=== PATIENT | female | born 1940 | race Caucasian/White ===

== ENCOUNTER → 2023-09-28 | Outpatient (CLI) | payer MEDICARE ==
--- NOTE | 2023-09-28 15:15 | MR ---
EXAMINATION TYPE: MR lumbar spine wo con DATE OF EXAM: 09/28/2023 COMPARISON: Radiograph 09/12/2023 HISTORY: 83-year-old female M54.50, Low back pain into ambreen lower extremities TECHNIQUE: Multiplanar, multisequence images of the lumbar spine were acquired without IV contrast. FINDINGS: There is a degenerated dextroconvex scoliosis along the upper lumbar spine. Heterogeneous marrow signal in part related to red marrow hyperplasia and in part edematous Modic typ e I endplate change towards the left at L2-L3 and towards the right at L4-L5 due to the patient's sco liotic curvature. There is moderate multilevel degenerative disc disease with degenerated, desiccated, narrowed, diffus fadia bulging discs. Vertebral heights are preserved. Overall alignment is maintained. Conus medullaris is normal. Large bulging discs are present at multiple levels. There is also advanced hypertrophic facet arthrop athy and prominent ligamentum flavum thickening throughout the lumbar spine. At T10-T11, central, right paracentral disc protrusion impressing on the ventral thecal sac but not c ausing any significant spinal canal stenosis. There is moderate bilateral neuroforaminal stenosis. Additional moderate bilateral foraminal stenosis at T11-T12. At T12-L1, there is mild disc bulge without significant spinal canal stenosis. Mild bilateral neural foraminal narrowing. At L1-L2, diffuse disc bulge with ligamentum flavum thickening and hypertrophic facet arthropathy. Ov erall mild spinal canal stenosis along with moderate to severe left and mild right neuroforaminal mag nosis. At L2-L3, there is diffuse disc bulge with ligamentum flavum thickening and hypertrophic facet arthro carlos. Changes result in moderate spinal canal stenosis with moderate to severe left neural foraminal stenosis. At L3-L4, there is diffuse disc bulge with ligamentum flavum thickening and advanced hypertrophic fac et arthropathy. Changes result in moderate to severe focal spinal canal stenosis along with moderate left neuroforaminal stenosis. At L4-L5, there is diffuse disc bulge with ligamentum flavum thickening and hypertrophic facet arthro carlos. Changes result in moderate to severe focal spinal canal stenosis with moderate to severe right neuroforaminal stenosis. At L5-S1, there is facet arthropathy without significant canal or foraminal stenosis. IMPRESSION: 1. Degenerated dextroconvex scoliosis centered along the upper lumbar spine. There is moderate multil evel degenerative disc disease. At the sides of concavity, left L2-L3 and right L4-L5, there is assoc iated edematous Modic type I endplate change. 2. No vertebral compression collapse or malalignment. 3. Additional prominent ligamentum flavum thickening and hypertrophic facet arthropathy throughout. 4. Changes result in overall moderate to severe spinal canal stenosis at L3-L4 and L4-L5. Moderate at L2-L3 and mild at L1-L2. 5. Variable neuroforaminal stenoses as outlined above.
== END | disposition home or self-care (01) ==
LOC: RADMRIMAIN 12:54
PROVIDERS: ATTEND Orthopaedic Surgery
DX: M48.061 Spinal stenosis, lumbar region without neurogenic claudication (principal); M47.816 Spondylosis without myelopathy or radiculopathy, lumbar region; M51.36 Other intervertebral disc degeneration, lumbar region; M41.86 Other forms of scoliosis, lumbar region; M99.73 Connective tissue and disc stenosis of intervertebral foramina of lumbar region
CPT/HCPCS: 72148

== ENCOUNTER → 2024-07-01 | Outpatient (CLI) | payer MEDICARE ==
--- NOTE | 2024-07-23 13:40 | MR ---
Patient: Peri Lockhart L Ordering Physician: Unknown, Unknown ID: [id number] Phone, Pager: Phone: N/A Pager: N/A : [phone] Age/Gender: 84Y, F Primary Location: N/A Procedure: MR lumbar w/o con EXAMINATION TYPE: MR lumbar spine wo con DATE OF EXAM: 07/15/2024 6:45 AM CLINICAL INDICATION: Pain COMPARISON: 09/28/2023 TECHNIQUE: Multi planar, multi sequence imaging was performed utilizing: T1-weighted, T2-weighted, a nd turbo inversion recovery imaging of the lumbar spine. IV Contrast: cc . (None if empty) FINDINGS: Alignment: The lumbar vertebral bodies have preserved heights with scoliosis alignment dextroscoliosi s apex L2. Cord: The conus medullaris and the distal spinal cord appear unremarkable with regards to their signa l intensity and morphology. Bones/Discs: Multilevel disc degeneration changes with osteophyte formation, disc space narrowing, an d facet joint arthropathy. Multilevel disc desiccation is present. Reactive adjoining endplate edema at L4-L5 and L2-L3 and L1-L2 adjoining endplates T12-L1: No evidence of significant spinal canal stenosis or neural foraminal stenosis. L1-L2: Disc bulge and facet joint arthropathy result in mild spinal canal and severe left and moderat e right neural foraminal stenosis. L2-L3: Disc bulge and facet joint arthropathy result in moderate spinal canal and severe left and mod erate right neural foraminal stenosis. L3-L4: Disc bulge and facet joint arthropathy result in severe spinal canal and moderate to severe bi lateral neural foraminal stenosis. L4-L5: Disc bulge and facet joint arthropathy result in moderate to severe spinal canal and severe ri ght and moderate left neural foraminal stenosis. L5-S1: The disc has a rounded posterior morphology without significant spinal canal stenosis. Facet j oint arthropathy with moderate bilateral neural foraminal stenosis. No significant spinal canal or neural foraminal stenosis in the remainder of the visualized levels. Other findings: None. IMPRESSION: Overall findings are not significantly changed from prior. 1. Scoliosis changes with multilevel disc degeneration. Neural foraminal stenosis worse at L4-L5 wit h severe right, L3-L4 with moderate to severe bilateral, L2-L3 with severe left, L1 and L2 with sever e left neural foraminal stenosis. 2. Spinal canal stenosis worse at L3-L4 with severe, L4-5 with moderate to severe and L2-L3 with mod erate spinal canal stenosis.
== END | disposition home or self-care (01) ==
LOC: RADMRIMAIN 09:57
PROVIDERS: ATTEND Orthopaedic Surgery
DX: M48.061 Spinal stenosis, lumbar region without neurogenic claudication (principal); M51.36 Other intervertebral disc degeneration, lumbar region; M41.9 Scoliosis, unspecified
CPT/HCPCS: 72148

== ENCOUNTER → 2024-12-05 | Outpatient (CLI) | payer MEDICARE | END | disposition home or self-care (01) | LOC: LABPAT 10:50 | PROVIDERS: ATTEND Orthopaedic Surgery | DX: Z01.812 Encounter for preprocedural laboratory examination (principal); M54.17 Radiculopathy, lumbosacral region; M48.061 Spinal stenosis, lumbar region without neurogenic claudication; Z22.322 Carrier or suspected carrier of Methicillin resistant Staphylococcus aureus | CPT/HCPCS: 86850; 86900; 86901; 87070 ==

== ENCOUNTER 2024-12-09 05:40 | Observation (INO) | payer MEDICARE ==
[2024-12-05 14:52] VITALS: BMI 21.7
--- NOTE | 2024-12-08 21:49 | P.HPOR ---
History of Present Illness H&P Date: 12/05/24 .D:Date: 12/05/24 : 10:41am .T:Title: Sascha Cook [facility] H&P Age: 84 year Height: 5'3" Weight: 127 lbs BP:/ BMI: 22.50 kg/m2 Occupation: Retired VAS: 5 CC: Lumbar pain DOI: Chronic Ms. Lockhart presents to the office today, 12/05/24, for a Pre-Op appt to discuss her surgery and answer any questions or concerns. Patient reports that she was diagnosed with Covid on 11/28/24. She does report that she feels she has been improving, although she feels weak. Encouraged patient to increase her protein intake, possible drink Ensure protein shakes. Regarding her lumbar pain, she is reporting a pain across her lumbar region that radiates down the bilateral lower extremities. She describes her leg symptoms as a constant aching associated with weakness. She states her pain overall is increased with walking, standing, twisting, and stairs. Patient also states she has been having bladder incontinence. She is currently taking aspirin for her symptoms. Patient ambulates independently. * Patient denies any f/c/sob/cp, perineal numbness or tingling, or bowel incontinence/retention. * The patients past social, medical, family, surgical history, as well as review of systems, have been reviewed. Please refer to the History and Physical form that has been scanned into our electronic medical record system. * 16 points review of systems completed and as stated in HPI, all other systems reviewed are negative. PAST TREATMENTS: PAST IMAGING: -YES, MRI and xray - TRAUMA RELATED: -NO - WORK RELATED: -NO - PT IN LAST 6 MONTHS: -YES, no relief - PHYSICIAN DIRECTED HOME EXERCISE PROGRAM: -YES - ACTIVITY MODIFICATION: -YES - MEDICATIONS: -YES, Aspirin - ALTERNATIVE INTERVENTIONS (CHIROPRACTIC, ACUPUNCTURE, MASSAGE, RICE): -YES - BRACING: -NO - INJECTIONS (KEVIN, TF, RFA): -YES, L5-S1 KEVIN - MEDICAL HISTORY: Past Medical History: REVIEWED STATED IN CHART Past Surgical History: REVIEWED STATED IN CHART Social History: REVIEWED STATED IN CHART SMOKING: Never smoker ETOH: None SUBSTANCES: None Family History: REVIEWED STATED IN CHART P1 Current Medications: Rx: Sayra Back and Body 500 mg-32.5 mg tablet Ref: 0 Instructions: Q12 hours Rx: levothyroxine 50 mcg capsule Ref: 0 Instructions: take 1 capsule (50 mcg) by oral route once daily Rx: verapamiL ER (SR) 180 mg tablet,extended release Ref: 0 Instructions: take 1 tablet (180 mg) by oral route once daily with food P1 PHYSICAL EXAM: General: AOX3, NAD, Well hydrate, well nourished HEENT: No lumps or masses Extremities: No color changes, no pooling INTEGUMENT: Appearance: Normal color and turgor Surgical Incisions: none Hairy Patches: ABSENT Dorsal Skin Dimples: Normal [employer] spots: ABSENT PALPATION: TTP Midline: YES Paracervical: NO Parathoracic: NO Paralumbar: YES SIJ TESTING (Jannie's, FABER4, Compression, Distraction, Thigh Thrust, Hip Thrust): TESTED * POSITIVE FINDINGS: NA at this time NEGATIVE FINDINGS: Jannie's, FABER4, Compression, Distraction, Thigh Thrust, Hip Thrust POSTURAL BALANCE: Coronal: BALANCED Sagittal: BALANCED Shoulder height: LEVEL Pelvic Girdle: LEVEL ROM AND APPEARANCE: Neck: UNRESTRICTED Lumbar: RESTRICTED Shoulders: Symmetrical Hips: Symmetrical Knees: Symmetrical Hands: Symmetrical Feet: Symmetrical VASCULAR STATUS: PALPABLE PULSES B/L UE AND LE 2/4 RAD/ULNAR/DP/PT Edema: NONE NEUROLOGICAL EXAMINATION: Mental Status: Awake, alert, fully oriented with normal attention, concentration, and memory. Fluent appropriate speech. CRANIAL NERVES: I: Olfactory not assessed. II: Visual acuity normal, no visual field deficit noted with confrontation. III, IV: Normal pupillary reflexes & intact extraocular movements without nystagmus. V, : Intact symmetrical facial sensation. VII: Intact symmetrical facial motor movement: Hearing intact. IX, X: Intact gag, swallow, & normal voice. XI: Sternocleidomastoid, trapezius function intact. XII: Tongue midline with normal movements. TENSIONING: * L'HERMITTE'S SIG:NEG SPURLUNG'S SIGN:NEG UPPER EXTREMITY TENSIONING SIGNS: NEG CUBITAL TUNNEL COMPRESSION:NEG TINELS AT WRIST:NEG STRAIGH LEG RAISE:POS b/l CONTRALATERAL STRAIGHT LEG RAISE: NEG MOTOR EXAM (0-5/5, NT) Muscle appearance: Symmetrical, without signs of atrophy or dystrophy UPPER EXTREMITY RIGHT LEFT Shoulder Abduction 5 5 Biceps 5 5 Triceps 5 5 Wrist Extension 5 5 Hand Intrinsics 5 5 Duplicator Punch Operator 5 5 LOWER EXTREMITY RIGHT LEFT Hip Flexion 4 4 Knee Extension 4 4 Knee Flexion 4 4 Dorsiflexion 4 4 Plantarflexion 4 4 EHL 4 4 FHL 4 4 REFLEXES (0-4/2, NT): RIGHT LEFT Bicep 2 2 Brachioradialis 2 2 Triceps 2 2 Patellar 1 2 Achilles 1 2 PATHOLOGICAL REFLEXES: RIGHT LEFT BAXTER'S ABSENT ABSENT CLONUS ABSENT ABSENT BABINSKI ABSENT ABSENT RECTAL TONE: INTACT/NT SENSATION (0-4, NT): Sensation intact to LT and Pain * C5-T1 distribution BUE * L2-S2 distribution BLE *Exceptions below* DERMATOMAL DEFICIT/RADICULAR PATTERN: global GAIT AND FUNCTIONAL EVALUATION: AMBULATORY AID NONE ROMBERG'S TEST INTACT HAND AND FINGER DEXTERITY INTACT YES DYSDIADOCHOKINESIA EXAM NEG B/L YES TOE/HEEL WALK INTACT WITH GOOD BALANCE YES SQUAT AND RISE W/O ASSISTANCE TO 60 DEG KNEE FLEXION YES SINGLE LEG STANCE INTACT TRENDELENBURG NEG IMAGING: XRAY Date: 09/12/23 Location: [facility] Region: LUMBAR Views: MV IMAGES ARE REVIEWED WITH THE PATIENT IN OFFICE AND DEMONSTRATE THE FOLLOWING: FINDINGS: Image demonstrate degenerative lumbar scoliosis from L1-L5 for with grade 1 spondylolisthesis L4-L5 which is mobile. There is severe spondylotic collapse from L1-L4 with disc height loss facet arthrosis and a levoconvex scoliosis. This is degenerative in nature once again. Segmental collapse at L1-L2 and L2- L3 is the worst. No fractures or other lesions noted. AP pelvis demonstrates congruent level pelvis without fracture MRI Date: 07/01/24 Location: [facility] Region: LUMBAR Contrast: N IMAGES ARE REVIEWED WITH THE PATIENT IN OFFICE AND DEMONSTRATE THE FOLLOWING: FINDINGS: These demonstrate severe spondylotic changes with severe spondylotic collapse from L1-L3 grade 1 spondylolisthesis L4-L5 noted with severe stenosis L1-2 L2-3 L3-4 secondary to these findings with degenerative disc herniations facet arthropathy and hypertrophy ligamental hypertrophy and stenotic features. There is severe stenosis centrally as well as bilateral foraminal he secondary to these findings. No acute fracture dislocation or other lesions noted IMPRESSION: It was my pleasure to have seen and examined Peri. I reviewed the patient's clinical syndrome, physical findings, and imaging studies during the appointment today. It is my impression that the patient has a diagnosis of. 1.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 3.L1-S8gnsswreklnn and stenosis 4. Degenerative lumbar scoliosis 5. BLE weakness L>R 6. Neurogenic claudication PLAN: DISCUSSION: -I have discussed with the patient their clinical signs and symptoms, imaging, and treatment options. We have discussed risks, benefits, potential outcomes and natural course as pertains top their issues. The patient understands and would like to proceed as follows below: SURGICAL RECOMMENDATION -L1-L4 LAMINOFORAMINOTOMY THERAPIES - -Cont. with home exercises and home PT exercises as able -Cont. with Heat/Ice as warranted -Cont. with supplementation Vit D, Vit C, Ca2+, High protein diet -OK for massage or other alternative treatment modalities as able. If it exacerbates your sx do not continue ACTIVITY -Recommend walking up to 30 min 2x daily on a flat easy surface with good support. MEDICATIONS -Take as directed -Cont. home medications as directed by your PCP. Check with your PCP for any medication interactions or issues if needed. IMAGING -N/A INJECTIONS -N/A Spine Surgery Risk Review Ms. Lockhart is presenting for evaluation of lumbar pain. It was my pleasure to have seen and examined Ms. Lockhart. In our visit today we have had a chance to go over subjective complaints, physical examination findings and treatments including the natural course history without intervention and various interventional options. The patients imaging demonstrates: XRAY Date: 09/12/23 Location: [facility] Region: LUMBAR Views: MV IMAGES ARE REVIEWED WITH THE PATIENT IN OFFICE AND DEMONSTRATE THE FOLLOWING: FINDINGS: Image demonstrate degenerative lumbar scoliosis from L1-L5 for with grade 1 spondylolisthesis L4-L5 which is mobile. There is severe spondylotic collapse from L1-L4 with disc height loss facet arthrosis and a levoconvex scoliosis. This is degenerative in nature once again. Segmental collapse at L1-L2 and L2- L3 is the worst. No fractures or other lesions noted. AP pelvis demonstrates congruent level pelvis without fracture MRI Date: 07/01/24 Location: [facility] Region: LUMBAR Contrast: N IMAGES ARE REVIEWED WITH THE PATIENT IN OFFICE AND DEMONSTRATE THE FOLLOWING: FINDINGS: These demonstrate severe spondylotic changes with severe spondylotic collapse from L1-L3 grade 1 spondylolisthesis L4-L5 noted with severe stenosis L1-2 L2-3 L3-4 secondary to these findings with degenerative disc herniations facet arthropathy and hypertrophy ligamental hypertrophy and stenotic features. There is severe stenosis centrally as well as bilateral foraminal he secondary to these findings. No acute fracture dislocation or other lesions noted On physical exam, Ms. Lockhart demonstrates: Patient is reporting a pain across her lumbar region that radiates down te bilateral lower extremities. She describes her leg symptoms as a constant aching associated with weakness. She states her pain overall is increased with walking, standing, twisting, and stairs. Since last office visit se received L5-S1 KEVIN with mild relief. Patient also states she has been having bladder incontinence. I have explained to the patient that as their condition progresses it will cause further neurological deficits and eventual paralysis. Based on the patients imaging, physical exam, and the rapid progression and disabling nature of their symptoms, at this time I recommend surgery in the form of a: L1-L4 M LAMINOFORAMINOTOMY . I discussed the risk and benefits of this procedure at length with Ms. Lockhart. The patient agreed to considered pursuing the procedure abovementioned. Prior to surgery, she should follow up with her PCP (Cardio, ID, IM etc) for clearan ce. Questions were invited and answered, and the patient wishes to proceed as outlined below. Currently, I am recommendin.L1-L4 LAMINOFORAMINOTOMY 2.Follow up with PCP for surgical clearance 3.Review of surgical risks and benefits as well as an educational packet on the proposed surgical procedure. [LEFT] Risks: All surgical procedures come with inherent risks, including those related to positioning, anesthesia, intraoperative findings, and postoperative complications. It is important to understand that surgery does not come with any guarantee of a successful outcome as complications and adverse events are always possible. The patient was given a handout in office today discussing the surgical procedure and risks associated with the intervention, both of which were discussed with the patient. These risks include but are not limited to the following: * Experiencing same, different or even worse symptoms in back, neck, arms, or legs compared to before surgery. Requiring further surgery or other forms of treatment presently or at some time in the future at same or other levels of the intended spine surgery. On an extreme but fortunately relatively rare basis severe complication such as blindness, stroke, heart attack, temporary and/or permanent nerve injury, paralysis, coma, or may occur, sometimes without known explanation. Surgical complications may include but are not limited to risk of infection, fluid accumulation in the surgical dissection site, including a seroma or hematoma, that requires additional surgery, wound drainage, bleeding, new numbness or weakness, vision changes/loss, spinal fluid leakage, non-healing and/or infected incision, headaches, difficulty or inability to swallow, hoarseness, hemopneumothorax, pneumothorax, impotence, retrograde ejaculation, vaginal dryness; injury to nerves, spinal cord, blood vessels, lymphatics or other vital organs (i.e., bowel injury, injury to the great vessels); heterotopic bone formation; complications related to the hardware such as screws, rods, cages including misplaced hardware, device failure, instrumentation at the wrong spine level, hardware fracture/breakage, or hardware loosening; vertebral failure of the spinal column above or below the newly placed hardware; retained surgical instrumentations or devices and the need for further surgery. * Medical risks of the planned spine surgery include but are not limited to generalized Infections to the whole body or local areas outside of the surgical site (sepsis), heart attack, bleeding, anaphylaxis, meningitis, seizure, epilepsy, hearing loss, burn delgado, laceration of the head or other areas of the body, bruising, hypersensitivity of the skin, bladder over distension; allergic reaction; shoulder injury related to positioning; fat, blood and air clots to other areas of the body like heart, lungs, brain; failure of internal organs such as lungs, kidneys, liver and excessive bleeding. If blood transfusions are necessary, note that transfusions may cause intolerance reactions such as anaphylaxis or other complex reactions. Despite best efforts, the results of spine surgery might not heal in terms of bone, soft tissues such as skin, fascia, ligaments, and joints. Additionally, in order to achieve best possible results, spine surgery may be carried out beyond the initially planned levels and involve decompression, fusion including insertion of hardware at levels other than the original intended area of surgical interest change some portions of the procedure in order to ensure the best possible outcomes. With spine surgery and spinal fusion, there are different off label uses of instrumentation (devices, implants and hardware) as well as biological substances (bone morphogenic proteins, demineralized bone matrix) as well as using extra bone from allograft sources (i.e. cadaver bone) or autograft (iliac crest bone, ribs, or the spine itself). The patient has been given information about these practices and their inherent risks and benefits. [facility] is an educational center that serves as a training facility for neurosurgical and orthopedic SENIOR FINANCIAL REPORTING ANALYST and Nursing students. Physician assistants are medically trained surgical providers who function in the outpatient, inpatient, and operating room setting under the direct supervision of the attending surgeon. [facility] has multiple operating rooms with single and overlapping rooms running daily. They currently function under the required guidelines as produced by the [facility] Finance Committee with regards to the overlapping rooms and will continue to comply with changes to this policy as they occur. The requirements include and are complied with as follows: (1) the critical portions of the overlapping rooms will not occur at the same time, (2) the attending physician will be physically present during the critical portions of the procedure and immediately available during the entire case, and (3) a back-up attending is designated should the primary attending not be immediately available. The patient has had a chance to review all the listed information, has been given print outs detailing this information, and has had all his/her questions answered to their satisfaction. It was my pleasure to have seen and examined Ms. Lockhart. In our visit today we have had a chance to go over my understanding of our patient's current condition, the natural course history without intervention and various interventional options. Questions were invited and answered, and the patient wishes to proceed as outlined above. I have seen and examined the patient for 25 minutes and we have spent more than 50% of the time in repeat and detailed counseling about the patient's condition, its natural course history with out and as much as can be predicted with surgery and re-review of various surgical treatment options. In conclusion, Ms. Lockhart requested we proceed with the above suggested surgery and are willing to accept risks and limitations of the suggested surgery as nature of the disease process and our best attempts at treatment for the condition. Medical Necessity: Medical necessity for surgical intervention is established by multiple critical findings. Imaging studies demonstrate severe multilevel pathology including degenerative lumbar scoliosis from L1-L5 with mobile Grade I spondylolisthesis at L4-L5, and severe spondylotic collapse from L1-L4. MRI (07/01/24) confirms severe central and bilateral foraminal stenosis at multiple levels (L1-2, L2-3, L3-4) with disc herniations, facet arthropathy, and ligamental hypertrophy. The patient exhibits progressive neurological deterioration evidenced by bilateral lower extremity weakness, diminished reflexes, and most critically, new onset bladder incontinence indicating possible cauda equina compromise. Failed conservative management including physical therapy, medications, and epidural injections, combined with progressive neurological symptoms, establishes clear necessity for surgical intervention. Authorization Rationale: Authorization for L1-L4 minimally invasive laminoforaminotomy (left) is warranted based on several critical factors. First, the patient demonstrates progressive neurological decline with new onset bladder incontinence, indicating urgent need for decompression to prevent permanent neurological deficit. Second, imaging confirms severe multilevel stenosis with both central and foraminal components, correlating with clinical symptoms and failed conservative management. The minimally invasive approach is particularly appropriate given the patient's advanced age (84) and the need to minimize surgical morbidity while achieving adequate decompression. The surgical plan specifically addresses the most severely affected levels (L1-L4) where imaging demonstrates critical stenosis. Without surgical intervention, the patient faces high risk of permanent neurological deficit, particularly given the presence of bowel/bladder symptoms. The proposed surgical approach represents the least invasive option that can adequately address the neural compression while minimizing the risk of further instability in the setting of degenerative scoliosis. FOLLOW UP: 2 week Post -Op PLAN AT NEXT VISIT: RECHECK PATIENT EDUCATION: Medications Reviewed: YES In our visit today Ms. Lockhart and I have had a chance to go over my understanding of the patient's current condition, the natural course history without intervention and various interventional options. Questions were invited and answered, and the patient wishes to proceed as outlined above. I will be sure to keep you updated after Ms. Lockhart returns here for further follow-up. Thank you again for your referral. Please do not hesitate to contact me if you have any further questions. Signed and authenticated by: Trang Caicedo [facility] [address] [place] [id number] . This message is confidential, intended only for the named recipient(s) and may contain information that is privileged or exempt from disclosure under applicable law. If you are not the intended recipient(s), you are notified that the dissemination, distribution or copying of this information is prohibited. If you received this message in error, please notify the sender then delete this message. # SIGNED BY JANICE Jackson, Nurse Practitioner (STO)12/05/2024 11:00AM Past Medical History Past Medical History: Cancer, Hypertension, Osteoarthritis (OA), Thyroid Disorder Additional Past Medical History / Comment(s): tested positive for Covid 12-19-24-tx w/ paxlovid,chronic back pain, hx fx rt leg just below knee History of Any Multi-Drug Resistant Organisms: None Reported Past Surgical History: Cholecystectomy, Joint Replacement Additional Past Surgical History / Comment(s): Vulva CA-4 surgical procedures,ORIF rt hip, rt hip replacement, rt knee replacement,partial thyroidectomy Past Anesthesia/Blood Transfusion Reactions: No Reported Reaction, Postoperative Nausea & Vomiting (PONV) Additional Past Anesthesia/Blood Transfusion Reaction / Comment(s): no hx blood transfusion. PONV w/ gallbladder surgery Past Psychological History: No Psychological Hx Reported Smoking Status: Never smoker Past Alcohol Use History: None Reported Past Drug Use History: None Reported - Past Family History Mother Family Medical History: Deep Vein Thrombosis (DVT), Pulmonary Embolus Additional Family Medical History / Comment(s): at age 34 from PE after surgery Medications and Allergies Home Medications Medication Instructions Recorded Confirmed Type Acetaminophen [Tylenol Arthritis] 500 - 1,000 mg PO Q6H PRN 12/05/24 12/05/24 History Sayra Back And Body Extra Str 1 dose PO DAILY PRN 12/05/24 12/05/24 History Levothyroxine Sodium [Synthroid] 50 mcg PO QAM 12/05/24 12/05/24 History Verapamil HCl [Verapamil ER] 180 mg PO BID 12/05/24 12/05/24 History Allergies Allergy/AdvReac Type Severity Reaction Status Date / Time levofloxacin [From Levaquin] Allergy Rapid Verified 12/05/24 14:16 Heart Rate olmesartan [From Benicar] Allergy skin Verified 12/05/24 14:16 lesions,wt loss/diarrhea,hair loss Penicillins Allergy Anaphylaxis Verified 12/05/24 14:16 Sulfa (Sulfonamide Allergy Rash/Hives Verified 12/05/24 14:16 Antibiotics) Physical Examination Osteopathic Statement: *. No significant issues noted on an osteopathic st ructural exam other than those noted in the History and Physical/Consult.
[~2024-12-09 05:40] MED LIST: TRANEXAMIC 1,000 MG/100ML-NACL 1,000 MG in SALINE 1 100ML.BAG IVPB PRN
[2024-12-09] MEDS ORDERED: LIDOCAINE 1% (10MG/ML) FOR IV START INTRADERMA PRN (06:13)
[2024-12-09] MEDS: ACETAMINOPHEN TAB 500 MG TAB PO PRN (06:33)
[2024-12-09] MEDS: GABAPENTIN 300 MG CAP PO PRN (06:33)
[2024-12-09] MEDS: ONDANSETRON 4 MG/2 ML VIAL IVP ONE (06:56)
[2024-12-09] MEDS: LACTATED RINGERS 1,000 ML IV SCH (06:56)
[2024-12-09] MEDS: DEXAMETHASONE SOD PHOSPHATE 4 MG/ML 1 ML VIAL IV ONE (06:57)
[2024-12-09] MEDS ORDERED: fentaNYL (PF) 50 MCG/ML 2 ML AMP IVP PRN (07:00)
[2024-12-09] MEDS ORDERED: MIDAZOLAM 2 MG/2 ML VIAL IV PRN (07:00)
[2024-12-09] MEDS: IV FLUID CONTINUATION 1,000 ML IV ONE (07:12)
[2024-12-09] MEDS: IV FLUID CONTINUATION 500 ML IV ONE (07:12)
[2024-12-09] MEDS ORDERED: ALBUMIN HUMAN 5% (25gm) 500 ML VIAL IVPB ONE (07:27)
[2024-12-09] MEDS ORDERED: WATER FOR INJECTION, STERILE 10 ML VIAL IV ONE (07:27)
[2024-12-09] MEDS ORDERED: ROCURONIUM 10 MG/ML (5 ML VIAL) IV ONE (07:27)
[2024-12-09] MEDS ORDERED: TRANEXAMIC 1,000 MG/100ML-NACL PREMIX BAG ONE (07:27)
[2024-12-09] MEDS ORDERED: fentaNYL (PF) 50 MCG/ML 2 ML AMP ONE (07:27)
[2024-12-09] MEDS ORDERED: HYDROmorphone (PF) 1 MG/ML ONE (07:27)
[2024-12-09] MEDS ORDERED: PROPOFOL 10 MG/ML 20 ML VIAL IV ONE (07:27)
[2024-12-09] MEDS ORDERED: MIDAZOLAM 2 MG/2 ML VIAL ONE (07:27)
[2024-12-09] MEDS ORDERED: SUCCINYLCHOLINE CHLORIDE 200 MG/10 ML VIAL IV ONE (07:27)
[2024-12-09] MEDS ORDERED: PHENYLEPHRINE 10 MG/ML VIAL ONE (07:27)
[2024-12-09] MEDS ORDERED: LIDOCAINE 1% INJ 10MG/ML (20 ML MDV) ONE (07:27)
[2024-12-09] MEDS ORDERED: GLYCOPYRROLATE 0.2 MG/ML 2 ML VIAL ONE (07:27)
[2024-12-09] MEDS ORDERED: ePHEDrine 50 MG/ML 1 ML VIAL ONE (07:27)
[2024-12-09] MEDS ORDERED: NEOSTIGMINE 1 MG/ML 10 ML VIAL ONE (07:27)
[2024-12-09] MEDS: THROMBIN (BOVINE) 5,000 UNIT VIAL TOPICAL ONE (08:03)
[2024-12-09] MEDS: BUPIVACAINE (PF) 0.5% 30 ML VIAL SQ ONE (08:06)
[2024-12-09] MEDS: LIDOCAINE 2%-EPI 1:100,000 20 ML VIAL SQ ONE (08:06)
[2024-12-09] MEDS: LACTATED RINGERS 500 ML IV ONE (08:23)
[2024-12-09] MEDS: VANCOMYCIN 1,000 MG VIAL MISCELLANE ONE (09:00)
--- NOTE | 2024-12-09 09:57 | P.OP ---
Date of Procedure: 12/09/24 Preoperative Diagnosis: 1.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 3.L1-B6hlewcgmyvhv and stenosis 4. Degenerative lumbar scoliosis 5. BLE weakness L>R 6. Neurogenic claudication Postoperative Diagnosis: 1.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 3.L1-K8rdnnojfzavo and stenosis 4. Degenerative lumbar scoliosis 5. BLE weakness L>R 6. Neurogenic claudication Procedure(s) Performed: 1. L1-2, L2-3, L3-L4 BILATERAL LAMINECTOMY, PARTIAL MEDIAL FACETECTOMY AND FORAMINOTOMIES Implants: NONE Anesthesia: MAOA Surgeon: Cooper Pimentel Visitor Use Assistant #1: Nikolai Manzo (WAS PRESENT AND ASSISTED WITH ALL ASPECTS OF THE CASE FROM POSITIONG TO DRESSING PLACEMENT) Estimated Blood Loss (ml): 100 IV fluids (ml): 1,500 Urine output (ml): 300 Pathology: none sent Condition: stable Disposition: PACU Indications for Procedure: Ms. Lockhart is presenting for evaluation of lumbar pain. It was my pleasure to have seen and examined Ms. Lockhart. In our visit today we have had a chance to go over subjective complaints, physical examination findings and treatments including the natural course history without intervention and various interventional options. The patients imaging demonstrates: XRAY Date: 09/12/23 Location: [facility] Region: LUMBAR Views: MV IMAGES ARE REVIEWED WITH THE PATIENT IN OFFICE AND DEMONSTRATE THE FOLLOWING: FINDINGS: Image demonstrate degenerative lumbar scoliosis from L1-L5 for with grade 1 spondylolisthesis L4-L5 which is mobile. There is severe spondylotic collapse from L1-L4 with disc height loss facet arthrosis and a levoconvex scoliosis. This is degenerative in nature once again. Segmental collapse at L1-L2 and L2- L3 is the worst. No fractures or other lesions noted. AP pelvis demonstrates congruent level pelvis without fracture MRI Date: 07/01/24 Location: [facility] Region: LUMBAR Contrast: N IMAGES ARE REVIEWED WITH THE PATIENT IN OFFICE AND DEMONSTRATE THE FOLLOWING: FINDINGS: These demonstrate severe spondylotic changes with severe spondylotic collapse from L1-L3 grade 1 spondylolisthesis L4-L5 noted with severe stenosis L1-2 L2-3 L3-4 secondary to these findings with degenerative disc herniations facet arthropathy and hypertrophy ligamental hypertrophy and stenotic features. There is severe stenosis centrally as well as bilateral foraminal he secondary to these findings. No acute fracture dislocation or other lesions noted On physical exam, Ms. Lockhart demonstrates: Patient is reporting a pain across her lumbar region that radiates down te bilateral lower extremities. She describes her leg symptoms as a constant aching associated with weakness. She states her pain overall is increased with walking, standing, twisting, and stairs. Since last office visit se received L5-S1 KEVIN with mild relief. Patient also states she has been having bladder incontinence. I have explained to the patient that as their condition progresses it will cause further neurological deficits and eventual paralysis. Based on the patients imaging, physical exam, and the rapid progression and disabling nature of their symptoms, at this time I recommend surgery in the form of a: L1-L4 M LAMINOFORAMINOTOMY . I discussed the risk and benefits of this procedure at length with Ms. Lockhart. The patient agreed to considered pursuing the procedure abovementioned. Prior to surgery, she should follow up with her PCP (Cardio, ID, IM etc) for clearance. Questions were invited and answered, and the patient wishes to proceed as outlined below. Currently, I am recommendin.L1-L4 LAMINOFORAMINOTOMY Description of Procedure: L1-L4 open laminectomy The patient was seen and examined in the preoperative area. All preoperative protocols were followed. Informed consent was obtained, risks and benefits of the procedure were discussed at length. Risks including bleeding infection damage to the surrounding tissue and risk of reoperation were discussed with the patient. Risk of anesthesia up to and including was discussed with the patient. These are outlined in the risk review. They were willing to accept these risks and all of the risks of surgery. The patient was given a weight- based dose of antibiotics in the form of [Ancef]. The patient was seen and evaluated by the anesthesia team who deemed them fit for surgery. The site was marked, the patient was willing to proceed with the procedure. The patient was transferred to the operative suite by the Department of anesthesia. They were then drifted off to sleep by the department anesthesia and [GETA] was performed. The patient tolerated this well. [Gleason catheter was placed by nursing staff, atraumatically]. Once confirmation of lines and ventilation the patient was transferred to a [prone Geronimo table very carefully]. All bony prominences including wrists, elbows, axilla, chest, hips, and thighs, and feet were padded very well. Special attention was paid to the genitalia and these were padded accordingly. SCDs were placed on bilateral lower extremities and were connected. Arms were well padded and placed [on arm boards up and out in the 90/90 position]. Once in position, again we confirmed good ventilation capabilities and that lines were running appropriately. The patient's [Lumbar] spine was then exposed. 1010s were placed outlining the incision site. Standard alcohol was used to clean the incision site and allowed to dry. C-arm was used to biomark the patient and confirm level for incision which was marked with a skin marker. Operative briefing was performed with all teams and everyone in agreement to proceed. The patient was then prepped and draped in a normal sterile fashion. Timeout was then performed and all parties were in agreement with the procedure to be performed. Midline skin incision made and subperiosteal dissection taken down over the lamina of L1-4. Facet joints located and protected. Bolivar 4 was placed at the pars of L2 to jannie and lateral image taken to confirm levels for operation. Bilateral laminectomy, partial medial facetectomy and foraminotomies were then performed at L1-L4 using high speed kartik, 2-0 upbiting curette, 6-0 kerrison and 4-0 kerrison rongeurs. Ligamentum was removed. Deep facet joints capsule was removed along with cysts that were found deep from the facets. Foraminotomies done with kerrison and checked with a Rodney ball probe. Once decompression completed, meticulous hemostasis was done with floseal, paddies and gel foam. The wound bed was then irrigated with 6 L Abx Anfect and Gen followed by 6L NSS. The wound was inspected. Good decompression noted with no injury. X Ray taken AP and lateral with markers to jannie the decompression. Surgicel was placed on the dura. 2g Vanco powder placed in the wound. Deep drain placed and secured with a stitch to the skin. We then proceeded with closure. #1 PDS placed in the facia. 0 Vicryl placed in the deep subq and 2-0 in the superficial. Oscar placed in the skin. Wound edges approximated very well. The wound was then cleaned and dressed sterilly with Optifoam dressing, drain sponge and tegaderm. The patient was transferred back to their hospital bed atraumatically. [Drain continued to hold suction and was in a good position]. Patient was then awakened and extubated by the department of anesthesia having tolerated the procedure very well with no complications. They were transferred to the postoperative care unit in stable condition.
--- NOTE | 2024-12-09 10:06 | FL ---
Fluoroscopy INDICATION: Pain, laminectomy FINDINGS: Fluoroscopy time: 2 seconds. Total dose area product (DAP) in uGy*m?, mGy*cm? (or similar): 50.90 Images obtained: 3. IMPRESSION: 1. Documentation of fluoroscopy. [facility], , 12/09/2024 10:03 AM
[2024-12-09] MEDS ORDERED: HYDROcodone/APAP 5-325MG 1 EACH TAB PO PRN (10:44)
[2024-12-09] MEDS ORDERED: HYDROmorphone 0.5 MG/0.5 ML SYRINGE IVP PRN (10:49)
[2024-12-09] MEDS: HYDROmorphone 0.5 MG/0.5 ML SYRINGE IVP PRN (14:48)
[2024-12-09] MEDS: ONDANSETRON 4 MG/2 ML VIAL IVP PRN ×2 (14:51→20:17)
[2024-12-09] MEDS: ACETAMINOPHEN TAB 325 MG TAB PO SCH (15:39)
--- NOTE | 2024-12-09 18:45 | XR ---
Fluoroscopy INDICATION: Pain minimally invasive laminectomy FINDINGS: Fluoroscopy time: 2 seconds. Total dose area product (DAP) in uGy*m?, mGy*cm? (or similar): 50.98 Images obtained: 4. IMPRESSION: 1. Documentation of fluoroscopy. [facility], , 12/09/2024 6:42 PM
[2024-12-09] MEDS: HYDROcodone/APAP 7.5-325MG 1 EACH TAB PO PRN (20:17)
[2024-12-10] MEDS: traMADol 50 MG TAB PO PRN (00:26)
[2024-12-10] MEDS: CYCLOBENZAPRINE 5 MG TAB PO PRN (09:01)
[2024-12-10] MEDS: ASPIRIN 81 MG PO SCH (09:02)
[2024-12-10] MEDS: SENNOSIDES-DOCUSATE SODIUM 1 EACH TAB PO SCH (09:02)
[2024-12-10 09:23] LABS: Blood Urea Nitrogen 18.9 mg/dL (9.0-27.0); Calcium 9.3 mg/dL (8.7-10.3); Carbon Dioxide 23.2 mmol/L (21.6-31.8); Chloride 102 mmol/L (96-109); Glucose 119 mg/dL (70-110); Potassium 4.5 mmol/L (3.5-5.5); Sodium 136 mmol/L (135-145)
[2024-12-10 09:40] LABS: Basophils # (A) 0.03 X 10*3/uL (0.00-0.10); Basophils % (A) 0.2 %; Eosinophils # (A) 0 X 10*3/uL (0.04-0.35); Eosinophils % (A) 0 %; HCT 34.6 % (37.2-46.3); HGB 10.7 g/dL (12.0-15.0); Lymphocytes # (A) 1.09 X 10*3/uL (0.90-5.00); Lymphocytes % (A) 7.8 %; MCH 29.9 pg (27.0-32.0); MCHC 30.9 g/dL (32.0-37.0); MCV 96.6 FL (80.0-97.0); Mean Platelet Volume 10.2 FL (9.5-12.2); Monocytes # (A) 1.03 X 10*3/uL (0.20-1.00); Monocytes % (A) 7.4 %; NRBC Per 100 WBC 0 X 10*3/uL (0.00-0.01); Neutrophils # (A) 11.69 X 10*3/uL (1.80-7.70); Neutrophils % (A) 84.2 %; Platelet Count 332 X 10*3/uL (140-440); RBC 3.58 X 10*6/uL (4.10-5.20); RDW 12.3 % (11.5-14.5)
--- NOTE | 2024-12-10 13:51 | P.CONS ---
History of Present Illness - Reason for Consult Consult date: 12/09/24 Medical management Requesting physician: Cooper Pimentel - Chief Complaint Lumbar surgery - History of Present Illness I am rounding for Dr. Andre Baxter who called me this evening not feeling well. 84-year-old patient, follows with Dr Welsh. Chronic stable medical condition include hypertension, osteoarthritis, hypothyroid. History of COVID. Patient underwent lumbar surgery with symptoms at the same area including causing neurogenic claudication and lower extremity weakness left greater than right. Rather sleepy postoperative. Review of systems: Difficult obtain as patient rather sleepy postoperative Social history: Non-smoking. No alcohol. Physical examination: VITAL SIGNS: 97.6, 74, 17, 131 by Darlene 76, 95% room air GENERAL: Laying in bed. Sleepy, BMI 21.6]. EYES: Pupils equal. Conjunctiva julia l. HEENT: External appearance of nose and ears normal, oral cavity grossly normal. NECK: JVD not raised; masses not palpable. HEART: First and second heart sounds are normal; no edema. LUNGS: Respiratory rate normal; clear to auscultation. ABDOMEN: Soft, nontender, liver spleen not palpable, no masses palpable. PSYCH: Unable to assess rather sleepy MUSCULOSKELETAL:No Clubbing/cyanosis;muscles-grossly intact. OA. Dressing over the lumbar site. Assessment plan: -L3-L4 severe stenosis with spondylosis, spondylolisthesis, bilateral lower extremity weakness left greater than right, neurogenic claudication. Followed by bilateral laminectomy facetectomy and foraminotomies. Pain medications per Ortho. Activity as tolerated. Received IV cefazolin for infection prophylaxis and IV Decadron. -Essential hypertension Verapamil ER 180 mg twice daily -Hypothyroid Synthroid 50 mcg a day -Primary osteoarthritis Pain medication as needed Thank you Dr. Pimentel Past Medical History Past Medical History: Cancer, Hypertension, Osteoarthritis (OA), Thyroid Disorder Additional Past Medical History / Comment(s): tested positive for Covid 12-19-24-tx w/ paxlovid,chronic back pain, hx fx rt leg just below knee History of Any Multi-Drug Resistant Organisms: None Reported Past Surgical History: Cholecystectomy, Joint Replacement Additional Past Surgical History / Comment(s): Vulva CA-4 surgical procedures,ORIF rt hip, rt hip replacement, rt knee replacement,partial thyroid ectomy Past Anesthesia/Blood Transfusion Reactions: No Reported Reaction, Postoperative Nausea & Vomiting (PONV) Additional Past Anesthesia/Blood Transfusion Reaction / Comm: no hx blood transfusion. PONV w/ gallbladder surgery Past Psychological History: No Psychological Hx Reported Smoking Status: Never smoker Past Alcohol Use History: None Reported Past Drug Use History: None Reported - Past Family History Mother Family Medical History: Deep Vein Thrombosis (DVT), Pulmonary Embolus Additional Family Medical History / Comment(s): at age 34 from PE after surgery Medications and Allergies Home Medications Medication Instructions Recorded Confirmed Type Acetaminophen [Tylenol Arthritis] 500 - 1,000 mg PO Q6H PRN 12/05/24 12/09/24 History Sayra Back And Body Extra Str 1 dose PO DAILY PRN 12/05/24 12/09/24 History Levothyroxine Sodium [Synthroid] 50 mcg PO QAM 12/05/24 12/09/24 History Verapamil HCl [Verapamil ER] 180 mg PO BID 12/05/24 12/09/24 History Allergies Allergy/AdvReac Type Severity Reaction Status Date / Time levofloxacin [From Levaquin] Allergy Rapid Verified 12/09/24 06:18 Heart Rate olmesartan [From Benicar] Allergy skin Verified 12/09/24 06:18 lesions,wt loss/diarrhea,hair loss Penicillins Allergy Anaphylaxis Verified 12/09/24 06:18 Sulfa (Sulfonamide Allergy Rash/Hives Verified 12/09/24 06:18 Antibiotics) clarithromycin AdvReac Diarrhea Verified 12/09/24 06:33 Physical Exam Vitals: Vital Signs Temp Pulse Pulse Pulse Resp BP BP 12/09/24 19:58 97.6 F 74 17 131/76 12/09/24 15:30 97 16 161/91 12/09/24 15:00 63 17 141/82 12/09/24 14:30 70 16 130/75 12/09/24 14:00 68 16 113/68 12/09/24 13:30 71 16 118/67 12/09/24 13:00 66 16 116/67 12/09/24 12:30 71 15 117/70 12/09/24 12:15 65 16 116/68 12/09/24 12:00 67 17 108/64 12/09/24 11:45 63 17 118/70 12/09/24 11:30 68 17 117/69 12/09/24 11:15 71 17 117/65 12/09/24 11:00 73 16 120/67 12/09/24 10:45 68 14 103/57 12/09/24 10:30 71 15 111/62 12/09/24 10:17 97.6 F 77 16 128/71 12/09/24 06:35 98.7 F 83 18 163/89 Pulse Ox 12/09/24 19:58 95 12/09/24 15:30 95 12/09/24 15:00 95 12/09/24 14:30 96 12/09/24 14:00 97 12/09/24 13:30 98 12/09/24 13:00 97 12/09/24 12:30 97 12/09/24 12:15 98 12/09/24 12:00 98 12/09/24 11:45 97 12/09/24 11:30 98 12/09/24 11:15 97 12/09/24 11:00 97 12/09/24 10:45 99 12/09/24 10:30 99 12/09/24 10:17 98 12/09/24 06:35 97 Intake and Output 12/09/24 12/09/24 12/09/24 06:59 14:59 22:59 Intake Total 650 130 Output Total 140 450 Balance 510 -320 Intake: IV 650 Intake, IV Titration 130 Amount Lactated Ringers 1,000 ml 80 @ 20 mls/hr IV .Q24H [facility] Rx#:[id number] ceFAZolin 2 gm In Sodium 50 Chloride 0.9% 50 ml @ 100 mls/hr IVPB Q8HR [facility] Rx# :[id number] Output: Urine 40 450 Estimated Blood Loss 100 Other: Weight 55.4 kg Results CBC & Chem 7: 12/10/24 04:39 12/10/24 04:39
--- NOTE | 2024-12-10 13:54 | P.PN ---
Progress Note - Text Progress Note Date: 12/10/24 - Chief Complaint Lumbar surgery - History of Present Illness I am rounding for Dr. Andre Baxter who called me this evening not feeling well. 84-year-old patient, follows with Dr Welsh. Chronic stable medical condition include hypertension, osteoarthritis, hypothyroid. History of COVID. Patient underwent lumbar surgery with symptoms at the same area including causing neurogenic claudication and lower extremity weakness left greater than right. Rather sleepy postoperative. December 10: Did tolerate a meal. Some pain present at operative site. Using a walker. Made urine. No bowel movement. Discussed with at the bedside. Active Medications Acetaminophen (Acetaminophen Tab 325 Mg Tab) 650 mg PO Q6HR [facility] Stop: 01/08/25 11:59 Last Admin: 12/10/24 12:16 Dose: Not Given Hydrocodone Bitart/Acetaminophen (Hydrocodone/Apap 5-325mg 1 Each Tab) 1 each PO Q6HR PRN PRN Reason: Pain Scale 6 To 8 Stop: 01/08/25 10:43 Hydrocodone Bitart/Acetaminophen (Hydrocodone/Apap 7.5-325mg 1 Each Tab) 1 each PO Q6HR PRN PRN Reason: Pain Scale 8 to 10 Stop: 01/08/25 10:47 Last Admin: 12/10/24 13:12 Dose: 1 each Aspirin (Aspirin 81 Mg) 81 mg PO DAILY [facility] Stop: 01/09/25 08:59 Last Admin: 12/10/24 09:02 Dose: 81 mg Cyclobenzaprine HCl (Cyclobenzaprine 5 Mg Tab) 5 mg PO BID PRN PRN Reason: Muscle Spasm Stop: 01/08/25 20:59 Last Admin: 12/10/24 09:01 Dose: 5 mg Hydromorphone HCl (Hydromorphone 0.5 Mg/0.5 Ml Syringe) 0.5 mg IVP Q3HR PRN PRN Reason: Pain Scale 8 to 10 Stop: 01/08/25 10:43 Hydromorphone HCl (Hydromorphone 0.5 Mg/0.5 Ml Syringe) 0.25 mg IVP Q3HR PRN PRN Reason: Pain Scale 6 To 8 Stop: 01/08/25 10:48 Lactated Ringer's (Lactated Ringers) 1,000 mls @ 20 mls/hr IV .Q24H [facility] Stop: 01/08/25 06:12 Last Admin: 12/09/24 16:27 Dose: 20 mls/hr Lidocaine HCl (Lidocaine 1% (10mg/Ml) For Iv Start) 0.1 ml INTRADERMA PER PROTOCOL PRN PRN Reason: IV Start Stop: 01/08/25 06:12 Magnesium Hydroxide (Magnesium Hydroxide 2,400 Mg/30 Ml Cup) 2,400 mg PO DAILY PRN PRN Reason: Constipation Stop: 01/08/25 10:43 Ondansetron HCl (Ondansetron 4 Mg/2 Ml Vial) 4 mg IVP Q8HR PRN PRN Reason: Nausea And Vomiting Stop: 01/08/25 10:43 Last Admin: 12/09/24 20:17 Dose: 4 mg Psyllium Hydrophilic Mucilloid (Psyllium Husk 100% 6 Gm Packet) 6 gm PO DAILY [facility] Senna/Docusate Sodium (Sennosides-Docusate Sodium 1 Each Tab) 2 each PO DAILY [facility] Stop: 01/09/25 08:59 Last Admin: 12/10/24 09:02 Dose: Not Given Tramadol HCl (Tramadol 50 Mg Tab) 50 mg PO Q6HR PRN PRN Reason: Pain Scale 4 - 6 Stop: 01/08/25 10:43 Last Admin: 12/10/24 09:01 Dose: 50 mg Social history: Non-smoking. No alcohol. Physical examination: VITAL SIGNS: 98.2, 75, 16, 124 x 69, 97% room air GENERAL: Sitting at the side of the bed. EYES: Pupils equal. Conjunctiva julia l. HEENT: External appearance of nose and ears normal, oral cavity grossly normal. NECK: JVD not raised; masses not palpable. HEART: First and second heart sounds are normal; no edema. LUNGS: Respiratory rate normal; clear to auscultation. ABDOMEN: Soft, nontender, liver spleen not palpable, no masses palpable. PSYCH: AA O x 3, mood affect normal MUSCULOSKELETAL:No Clubbing/cyanosis;muscles-grossly intact. OA. Dressing over the lumbar site. INVESTIGATIONS, reviewed in the clinical context: December 10: White count 13.9 hemoglobin 10.7 platelets 332 potassium 4.5 creatinine 0.7 Assessment plan: -L3-L4 severe stenosis with spondylosis, spondylolisthesis, bilateral lower extremity weakness left greater than right, neurogenic claudication. Followed by bilateral laminectomy facetectomy and foraminotomies. Pain medications per Ortho. Activity as tolerated. Received IV cefazolin for infection prophylaxis and IV Decadron. -Essential hypertension Verapamil ER 180 mg twice daily -Acute postprocedure blood loss anemia expected from surgery IV Ferrlecit. Oral iron. -Leukocytosis likely reactive surgery. No clinical evidence of infection -Hypothyroid Synthroid 50 mcg a day -Primary osteoarthritis Pain medication as needed IV Ferrlecit. Oral iron. Discussed with patient . Thank you Dr. Pimentel Past Medical History Past Medical History: Cancer, Hypertension, Osteoarthritis (OA), Thyroid Disorder Additional Past Medical History / Comment(s): tested positive for Covid 12-19-24-tx w/ paxlovid,chronic back pain, hx fx rt leg just below knee History of Any Multi-Drug Resistant Organisms: None Reported Past Surgical History: Cholecystectomy, Joint Replacement Additional Past Surgical History / Comment(s): Vulva CA-4 surgical procedures,ORIF rt hip, rt hip replacement, rt knee replacement,partial thyroidectomy Past Anesthesia/Blood Transfusion Reactions: No Reported Reaction, Postoperative Nausea & Vomiting (PONV) Additional Past Anesthesia/Blood Transfusion Reaction / Comm: no hx blood transfusion. PONV w/ gallbladder surgery Past Psychological History: No Psychological Hx Reported Smoking Status: Never smoker Past Alcohol Use History: None Reported Past Drug Use History: None Reported
--- NOTE | 2024-12-10 14:03 | P.PN ---
Subjective Progress Note Date: 12/10/24 Principal diagnosis: Status post L1-L4 decompression laminectomy Patient evaluated at bedside, she is resting comfortably in her hospital bed, is present at bedside. Patient admits to discomfort more when she attempts movement. She states the legs are feeling well at this time. She has been ambulating with use of a walker. She has been urinating with no issues. She denies headaches, lightheadedness, chest pain or shortness of breath Objective - Vital Signs Vital signs: Vital Signs Temp 98.2 F 12/10/24 07:18 Pulse 75 12/10/24 07:18 Resp 16 12/10/24 07:18 BP 124/69 12/10/24 07:18 Pulse Ox 97 12/10/24 07:18 FiO2 Intake & Output 12/09/24 12/10/24 12/10/24 18:59 06:59 18:59 Intake Total 780 Output Total 590 Balance 190 Intake: IV 650 Intake, IV Titration 130 Amount Lactated Ringers 1,000 ml 80 @ 20 mls/hr IV .Q24H [facility] Rx#:[id number] ceFAZolin 2 gm In Sodium 50 Chloride 0.9% 50 ml @ 100 mls/hr IVPB Q8HR [facility] Rx# :[id number] Output: Urine 490 Estimated Blood Loss 100 Other: # Voids 2 - Exam Gen: AOx3, NAD VSS stable at this time Integument: Postop dressing is in good position and condition Palpation: Mild tenderness with palpation to the lumbar spine ROM: Full range of motion in all major muscle groups of the bilateral upper lower extremities, no focal deficits Sensory Exam: Senory exam to light touch is intact C5-T1 Senosry exam to light touch is intact L2-S1 Motor: 4+/5 strength appreciated bilateral lower extremities with hip flexion, knee extension, knee flexion, plantarflexion, dorsiflexion, EHL, FHL Reflexes: 2/4 in all UE and LE Negative Elder's bilaterally Negative Babinski bilaterally Negative clonus bilaterally - Labs CBC & Chem 7: 12/10/24 04:39 12/10/24 04:39 Labs: Abnormal Lab Results - Last 24 Hours (Table) 12/10/24 12/10/24 Range/Units 04:39 04:39 WBC 13.90 H (4.50-10.00) X 10*3/uL RBC 3.58 L (4.10-5.20) X 10*6/uL Hgb 10.7 L (12.0-15.0) g/dL Hct 34.6 L (37.2-46.3) % MCHC 30.9 L (32.0-37.0) g/dL Immature Gran # 0.06 H (0.00-0.04) X 10*3/uL Neutrophils # 11.69 H (1.80-7.70) X 10*3/uL Monocytes # 1.03 H (0.20-1.00) X 10*3/uL Eosinophils # 0 L (0.04-0.35) X 10*3/uL BUN/Creatinine Ratio 27.00 H (12.00-20.00) Ratio Glucose 119 H (70-110) mg/dL Assessment and Plan Assessment: Postoperative day #1 status post L1-L4 decompression and laminectomy Plan: Pain control, discussed with patient she can utilize a stronger medication than tramadol if needed. Continue the muscle relaxer as needed. Continue stool softeners DVT prophylaxis, aspirin 81 mg daily Wound care, plan for dressing change on 12/11/2024 Weight-bear as tolerated with walker, no bending, lifting or twisting Encourage incentive spirometer PT/OT Medical recommendations appreciated Discharge planning: Would like to keep patient in hospital for additional day, plan for discharge home on 12/11/2024 Time with Patient: Less than 30
[2024-12-10] MEDS: PSYLLIUM HUSK 100% 6 GM PACKET PO SCH (15:24)
[2024-12-10] MEDS: HYDROmorphone 0.5 MG/0.5 ML SYRINGE IVP PRN (16:45)
[2024-12-10] MEDS: SODIUM FERRIC GLUCONAT-SUCROSE 125 MG in SODIUM CHLORIDE 0.9% 100 ML IVPB SCH (16:45)
[2024-12-10] MEDS: FERROUS SULFATE 325 MG TAB PO SCH (16:48)
[2024-12-10] MEDS: VERAPAMIL SR 180 MG TABLET.ER PO SCH (20:25)
[2024-12-11] MEDS: LEVOTHYROXINE 50 MCG TAB PO SCH (06:04)
--- NOTE | 2024-12-11 12:58 | P.PN ---
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 3.L1-V2mfqglvhlvqg and stenosis 4. Degenerative lumbar scoliosis 5. BLE weakness L>R 6. Neurogenic claudication Patient was seen at bedside this morning lying the semirecumbent position with dressing present over lumbar spine. Patient says she has been improving gradually every day. Patient says she has gotten up with therapy however she has had a difficult time getting up under her own power and has needed assistance. Patient says she does have at home who will be able to help her out and she is hoping to go home possibly today or tomorrow. She says she has been urinating okay since surgery. Patient says pain has been controlled with oral medication. Patient denies any other issues at this time. Objective - Vital Signs Vital signs: Vital Signs Temp 97.7 F 12/11/24 07:15 Pulse 74 12/11/24 07:35 Resp 17 12/11/24 07:35 BP 100/61 12/11/24 07:15 Pulse Ox 92 L 12/11/24 07:15 FiO2 Intake & Output 12/10/24 12/11/24 12/11/24 18:59 06:59 18:59 Intake Total 1999 Balance 1999 Intake: Oral 1999 Other: Voiding Method Bedside Commode Bedside Commode Diaper Diaper # Voids 6 1 - Exam Some swelling present over dressing on spine. Dressing taken down. [place] appear to be well aligned and intact. Negative for any drainage. New dressing placed over spine incision. Sensation is equal, symmetric, by intact throughout the upper and lower extremities on exam. There is some generalized tenderness to palpation near incision on exam. Nontender throughout rest of exam. Patient does have good range of motion throughout extremities on exam. 4+/5 in all major motor groups in bilateral upper and lower extremities. Radial pulse intact, 2+ bilaterally. Cap refill under 3 seconds in digits of upper extremities. Negative Homans bilaterally. Negative clonus bilaterally. Negative Elder bilaterally. 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 3.L1-Z4rogkbwfbeog and stenosis 4. Degenerative lumbar scoliosis 5. BLE weakness L>R 6. Neurogenic claudication -Postop day #3 status post L1-2, L2-3, L3-L4 BILATERAL LAMINECTOMY, PARTIAL MEDIAL FACETECTOMY AND FORAMINOTOMIES Plan: 1. L3-4 severe stenosiswith spondylosis; L4-5 severe stenosis with Grade I spondylolisthesis, unstable; L1-P1bbyifvofyrg and stenosis; Degenerative lumbar scoliosis; BLE weakness L>R; Neurogenic claudication -surgery performed 12/08/2024L1-2, L2-3, L3-L4 BILATERAL LAMINECTOMY, PARTIAL MEDIAL FACETECTOMY AND FORAMINOTOMIES. Patient's pain has been improving over the past couple days. Dressing removed at bedside this morning. New dressing placed over incision. [place] well aligned and intact. Patient is still a bit unsteady getting up out of bed on her own. Weightbearing as tolerated with walker and assistance as needed. Pain medication as needed. We will plan to keep patient 1 more night for additional therapy before planning for discharge home tomorrow with home care. 2. Appreciate medical management 3. Pain management -[place]; Flexeril; tramadol 4. GI prophylaxis -senna 5. DVT prophylaxis -aspirin 6. PT/OT -weightbearing as tolerated with walker and assistance 7. Encourage incentive spirometer use 8. Discharge planning -plan for home tomorrow with home care Time with Patient: Less than 30
--- NOTE | 2024-12-11 16:07 | P.PN ---
Progress Note - Text Progress Note Date: 12/11/24 - Chief Complaint Lumbar surgery - History of Present Illness I am rounding for Dr. Andre Baxter who called me this evening not feeling well. 84-year-old patient, follows with Dr Welsh. Chronic stable medical condition include hypertension, osteoarthritis, hypothyroid. History of COVID. Patient underwent lumbar surgery with symptoms at the same area including causing neurogenic claudication and lower extremity weakness left greater than right. Rather sleepy postoperative. December 10: Did tolerate a meal. Some pain present at operative site. Using a walker. Made urine. No bowel movement. Discussed with at the bedside. December 11: Eating fair. Has a brace. No bowel movement. Taking laxative. Discussed with patient . Active Medications Acetaminophen (Acetaminophen Tab 325 Mg Tab) 650 mg PO Q6HR [facility] Stop: 01/08/25 11:59 Last Admin: 12/11/24 12:09 Dose: Not Given Hydrocodone Bitart/Acetaminophen (Hydrocodone/Apap 5-325mg 1 Each Tab) 1 each PO Q6HR PRN PRN Reason: Pain Scale 6 To 8 Stop: 01/08/25 10:43 Hydrocodone Bitart/Acetaminophen (Hydrocodone/Apap 7.5-325mg 1 Each Tab) 1 each PO Q6HR PRN PRN Reason: Pain Scale 8 to 10 Stop: 01/08/25 10:47 Last Admin: 12/11/24 06:04 Dose: 1 each Aspirin (Aspirin 81 Mg) 81 mg PO DAILY [facility] Stop: 01/09/25 08:59 Last Admin: 12/11/24 08:58 Dose: 81 mg Cyclobenzaprine HCl (Cyclobenzaprine 5 Mg Tab) 5 mg PO BID PRN PRN Reason: Muscle Spasm Stop: 01/08/25 20:59 Last Admin: 12/10/24 16:45 Dose: 5 mg Ferrous Sulfate (Ferrous Sulfate 325 Mg Tab) 325 mg PO W/LUNCH [facility] Last Admin: 12/10/24 16:48 Dose: 325 mg Hydromorphone HCl (Hydromorphone 0.5 Mg/0.5 Ml Syringe) 0.5 mg IVP Q3HR PRN PRN Reason: Pain Scale 8 to 10 Stop: 01/08/25 10:43 Last Admin: 12/10/24 16:45 Dose: 0.5 mg Hydromorphone HCl (Hydromorphone 0.5 Mg/0.5 Ml Syringe) 0.25 mg IVP Q3HR PRN PRN Reason: Pain Scale 6 To 8 Stop: 01/08/25 10:48 Lactated Ringer's (Lactated Ringers) 1,000 mls @ 20 mls/hr IV .Q24H [facility] Stop: 01/08/25 06:12 Last Admin: 12/11/24 06:14 Dose: Not Given Ferric Sodium Gluconate 125 mg (/ Sodium Chloride) 110 mls @ 100 mls/hr IVPB DAILY [facility] Stop: 12/12/24 10:05 Last Admin: 12/11/24 08:59 Dose: 100 mls/hr Levothyroxine Sodium (Levothyroxine 50 Mcg Tab) 50 mcg PO QAM@0630 [facility] Last Admin: 12/11/24 06:04 Dose: 50 mcg Lidocaine HCl (Lidocaine 1% (10mg/Ml) For Iv Start) 0.1 ml INTRADERMA PER PROTOCOL PRN PRN Reason: IV Start Stop: 01/08/25 06:12 Magnesium Hydroxide (Magnesium Hydroxide 2,400 Mg/30 Ml Cup) 2,400 mg PO DAILY PRN PRN Reason: Constipation Stop: 01/08/25 10:43 Ondansetron HCl (Ondansetron 4 Mg/2 Ml Vial) 4 mg IVP Q8HR PRN PRN Reason: Nausea And Vomiting Stop: 01/08/25 10:43 Last Admin: 12/09/24 20:17 Dose: 4 mg Psyllium Hydrophilic Mucilloid (Psyllium Husk 100% 6 Gm Packet) 6 gm PO DAILY [facility] Last Admin: 12/11/24 08:59 Dose: 6 gm Senna/Docusate Sodium (Sennosides-Docusate Sodium 1 Each Tab) 2 each PO DAILY [facility] Stop: 01/09/25 08:59 Last Admin: 12/11/24 08:58 Dose: 2 each Tramadol HCl (Tramadol 50 Mg Tab) 50 mg PO Q6HR PRN PRN Reason: Pain Scale 4 - 6 Stop: 01/08/25 10:43 Last Admin: 12/11/24 08:58 Dose: 50 mg Verapamil HCl (Verapamil Sr 180 Mg Tablet.Er) 180 mg PO BID [facility] Last Admin: 12/11/24 08:58 Dose: 180 mg Social history: Non-smoking. No alcohol. Physical examination: VITAL SIGNS: 98.2, 60, 16, 105 x 65, 94% room air GENERAL: Up in chair, comfortable EYES: Pupils equal. Conjunctiva julia l. HEENT: External appearance of nose and ears normal, oral cavity grossly normal. NECK: JVD not raised; masses not palpable. HEART: First and second heart sounds are normal; no edema. LUNGS: Respiratory rate normal; clear to auscultation. ABDOMEN: Soft, nontender, liver spleen not palpable, no masses palpable. PSYCH: AA O x 3, mood affect normal MUSCULOSKELETAL:No Clubbing/cyanosis;muscles-grossly intact. OA. Dressing over the lumbar site. INVESTIGATIONS, reviewed in the clinical context: December 10: White count 13.9 hemoglobin 10.7 platelets 332 potassium 4.5 creatinine 0.7 Assessment plan: -L3-L4 severe stenosis with spondylosis, spondylolisthesis, bilateral lower extremity weakness left greater than right, neurogenic claudication. Followed by bilateral laminectomy facetectomy and foraminotomies. Pain medications per Ortho. Activity as tolerated. Received IV cefazolin for i nfection prophylaxis and IV Decadron. -Essential hypertension Verapamil ER 180 mg twice daily -Acute postprocedure blood loss anemia expected from surgery IV Ferrlecit. Oral iron. -Leukocytosis likely reactive surgery. No clinical evidence of infection -Hypothyroid Synthroid 50 mcg a day -Primary osteoarthritis Pain medication as needed I doing well. Laxative. Discussed. Thank you Dr. Pimentel Past Medical History Past Medical History: Cancer, Hypertension, Osteoarthritis (OA), Thyroid Disorder Additional Past Medical History / Comment(s): tested positive for Covid 12-19-24-tx w/ paxlovid,chronic back pain, hx fx rt leg just below knee History of Any Multi-Drug Resistant Organisms: None Reported Past Surgical History: Cholecystectomy, Joint Replacement Additional Past Surgical History / Comment(s): Vulva CA-4 surgical procedu res,ORIF rt hip, rt hip replacement, rt knee replacement,partial thyroidectomy Past Anesthesia/Blood Transfusion Reactions: No Reported Reaction, Postoperative Nausea & Vomiting (PONV) Additional Past Anesthesia/Blood Transfusion Reaction / Comm: no hx blood transfusion. PONV w/ gallbladder surgery Past Psychological History: No Psychological Hx Reported Smoking Status: Never smoker Past Alcohol Use History: None Reported Past Drug Use History: None Reported
[2024-12-11] MEDS: MAGNESIUM HYDROXIDE 2,400 MG/30 ML CUP PO PRN (18:57)
[2024-12-12 08:10] VITALS: BP 106/63; PULSE 67; RESP 18; TEMP 97.8
[2024-12-12 10:46] LABS: Basophils % (A) 0 %; Eosinophils # (A) 0.2 k/uL (0-0.7); Eosinophils % (A) 2 %; HCT 35.2 % (34.0-46.0); HGB 11.3 gm/dL (11.4-16.0); Lymphocytes % (A) 12 %; MCH 30.6 pg (25.0-35.0); MCV 95.6 fL (80.0-100.0); Mean Platelet Volume 6.9; Monocytes # (A) 0.5 k/uL (0-1.0); Monocytes % (A) 6 %; Neutrophils # (A) 6.6 k/uL (1.3-7.7); Neutrophils % (A) 78 %; Platelet Count 323 k/uL (150-450); RBC 3.68 m/uL (3.80-5.40); RDW 12.6 % (11.5-15.5); WBC 8.5 k/uL (3.8-10.6)
--- NOTE | 2024-12-12 11:41 | P.DS ---
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 3.L1-T3rehdordlegl and stenosis 4. Degenerative lumbar scoliosis 5. BLE weakness L>R 6. Neurogenic claudication Discharge diagnosis: Same Attending physician: Dr. Pimentel Surgical procedures: L1-2, L2-3, L3-L4 BILATERAL LAMINECTOMY, PARTIAL MEDIAL FACETECTOMY AND FORAMINOTOMIES Brief history: Patient is a 84-year-old female with a history of L3-4 stenosis with spondylosis; L4-5 stenosis with spondylolisthesis; L1-S1 spondylosis and stenosis; bilateral lower extremity weakness. At this point patient has failed conservative treatment measures and has opted to proceed with a elective L1-L4 bilateral laminectomy, partial medial facetectomy and foraminotomies. Hospital course: Details of patient's surgery can be found in operative report. Patient tolerated the procedure well and was subsequently transported to orthopedic floor. Patient's orthopeidc and medical care was provided daily. Patient had daily laboratory tests performed for evaluation of overall blood counts. Patient had daily physical therapy to include strengthening range of motion as well as education with walker ambulation. Patient was treated with aspirin for their postoperative DVT prophylaxis during their inpatient stay. Patient was noted to have a relatively uneventful postoperative course. Patient reported satisfactory pain control with oral pain medications by postoperative day 3. Patient showed satisfactory progress with physical therapy. Patient moved steadily through the program and had no difficulty meeting the goals by postoperative day 3. Given patient's otherwise satisfactory course and having met physical therapy goals, plan is to discharge patient home on postoperative day 3. Discharge condition/disposition: Patient will be discharged home in stable condition. Discharge medications: Instructions are given on resumption of patient's normal daily medications per primary care recommendation, in addition patient will be prescribed Bergholz; Flexeril; senna. 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 3.L1-X1rdgkaroooou and stenosis 4. Degenerative lumbar scoliosis 5. BLE weakness L>R 6. Neurogenic claudication Procedure: L1-2, L2-3, L3-L4 BILATERAL LAMINECTOMY, PARTIAL MEDIAL FACETECTOMY AND FORAMINOTOMIES Medications: See medication list All medication refills should be obtained through your primary care doctor or your clinic spine surgeon. Please discuss prescription refills at your follow up appointment. Do not call the hospital for medication refills. Dressing: Leave your dressing in place for a total of 5 days post operatively. Then you may remove your dressing and leave open to air. Keep the area clean and if not able to keep area clean, then cover with sterile gauze and tape. Showering: You may shower 3 days after your procedure allowing soap and water to run over incision. Do not scrub. Do not soak. Blot dry. Follow up: Please confirm a follow up appointment with your surgeon 3 weeks post operatively. Please make an appointment to follow up with your PCP in 1-2 weeks after surgery for evaluation '3 phase, 3-week plan' POST OP WEEKS 1-3 1. Lifting/carrying/pushing/pulling limited to less than 5 pounds. 2. Do not sit for longer than 15 minutes at one time. Get up and walk around. Prolonged sitting is NOT advised. If you lay down, see if you can tolerate laying down on you front (belly side) 3. Walk for periods of 15 minutes = 1 mile but no longer; do it multiple times times each day. 4. Ice your low back after activity. POST OP WEEKS 3-6 1. Lifting limited to less than 20 pounds. 2. Do not sit for longer than 30 minutes at a time. Frequently change positions. Use a sit-to stand workstation or take frequent breaks from sitting if you have returned to work. 3. Walk for 30 minutes each day. If possible, do these three or more times a day POST OP WEEKS 6+ At your 6-week appointment we will give you a physical therapy referral to focus on a core stabilization and strengthening program. You should also work on leg & buttock strengthening, hamstring & quadriceps stretching, and continue a low impact aerobic activity program such as swimming, walking, or riding a stationary bicycle. During the initial 6 weeks after your surgery, you are at the highest risk of re-injuring your spine. You should generally avoid BLT's (bending, lifting and twisting combination motions) and follow the above guidelines to reduce the chance of reinjury. You can anticipate post op appointments in our office at approximately 3 weeks and 6 weeks after your surgery. INCISION CARE: If your incision is not draining you do NOT need to cover it with a dressing. Keep your incision clean, dry and intact. In most cases, we apply skin glue, fee or sutures to the incision at the time of surgery. This will be like a crust or have the appearance of a scab and will fall off in time on its own. The stitches or efe need to be removed at 3 weeks post op appointment. You may begin to shower 3 days after surgery (this allows the glue to herrera well). However, please avoid scrubbing the incision site or peeling off any of the skin glue. This will ensure optimal healing of your incision. Also, during this time avoid soaking the incision area in water - this includes swimming pools, hot tubs or baths. No ointments, lotions or oils on the incision until your surgeon allows. Leave efe, sutures or glue in place. Neurological dysfunction that comes on suddenly can also be a sign of a stroke. Below some common symptoms of a stroke are listed: B - balance difficulty such as sudden onset walking or leaning to one side - NEW E - eye problem such as sudden double vision or trouble seeing on one side - NEW F - Facial weakness or numbness on one side - NEW A - Arm or leg weakness or numbness on one side - NEW S - Slurred speech or difficulty with word finding - NEW T - Time is BRAIN! Call 911 as soon as you recognize these symptoms Diet: Consume a regular diet rich in vegetables and lean protein such as chicken or fish. You should consume in a ratio of approximately 20% fats|40% carbohydrates|40%protein. Vegetables, sweet potatoes, brown rice or quinoa are examples of good carbohydrates. Chips, white bread, cookies and sweets/sugar are examples of bad carbohydrates. Limit your bad carbs, go wild with good carbs. "Life's Simple 7" Guidelines as per [place] [employer] These will help you reclaim your life after surgery and drywall hanger helper in your recovery, keeping in mind your restrictions. (1) Get Active. Physical activity can help people lose weight, control high blood pressure and cholesterol, feel emotionally better, and sleep better. (2) Control Cholesterol. Avoid a diet high in saturated fat, trans fat, & cholesterol. Limit whole milk & cream, ice cream, butter, egg yolks, processed meats (like sausage and hot dogs), and fatty meats. Choose healthy foods that are low in saturated fat, trans fat and cholesterol which include: Fruits and vegetables, fiber rich grain products (like whole grain pasta and brown rice), lean meat such as chicken, fish, nuts, seeds, and legumes. (3) Eat Better. Eat small portions. Shop at the grocery with a list and do not stray from it. Tips for a healthy diet include: Limit sodium intake to less than 1500mg daily, avoid prepackaged, processed, and fast foods, choose a diet rich in fruits, vegetables, and whole grain, high fiber foods, and limit saturated & cholesterol in your diet. (4) Manage Blood Pressure. If you have high blood pressure, you should have a cuff at home so that you can check your blood pressure regularly. Be sure you have a good cuff. An arm one is generally better than a wrist one. Bring the cuff to a doctor's appointment to validate that the measurements that your cuff are taking are accurate. Take your blood pressure twice daily when you are sitting down and relaxing. Record the numbers in a log and bring this log with you to your doctors' appointments. (5) Lose Weight if your BMI is above 25. A healthy BMI is between 19-25. To calculate Your BMI, you may use a Standard BMI Calculator on the NIH BMI website: <www.nhlbi.nih.gov/guidelines/obesity/BMI/bmicalc.htm>. Weigh oneself daily. If you are overweight, set a goal to lose weight. A pound a week loss if needed is a good target. (6) Reduce Blood Sugar. Limit foods and liquids with "added sugars." (Added sugars include sucrose, fructose, glucose, maltose, dextrose, high fructose corn syrup, corn syrup, concentrated fruit juice and honey). (7) Stop Smoking. If you smoke, quitting smoking is one of the best things that you can do for your health. Smoking increases your risk of heart attack, stroke, and peripheral vascular disease, which is a build-up of plaque in your arteries. Please discard all the cigarettes and lighters in your house. Have a plan for what you will do when you have the urge to smoke. Direct and second- hand smoke shortens your life as well as the lives of your family, friends and others around you. For your health and the health of those around you, please consider quitting! Proper Bending Body Mechanics: Maintain a wide stance with one foot slightly in front of the other. Keep your back straight. Bend utilizing the strength in your hips and knees. Do not bend at the waist. Maintain the lifted object at your waist-level close to your body. Avoid lifting weight that causes immediately pain or pain anywhere in the body afterwards. Smoking/Nicotine If there was ever one thing that you could do to increase your overall health, decrease your risk of cardiovascular problems by about 39% the second you make the choice, it is to STOP SMOKING. Your body's most instant gratification is the second you stop smoking. We have all heard the studies, read the articles but it is true, smoking is extremely bad for your overall health, and moreover it is detrimental to your bone health. Nicotine, IN ANY FORM, kills bone cells, prevents your body from healing fractures, and significantly prolongs healing after surgery. In spine surgery specifically, it increases your risk of not healing your bones to create a fusion and increases your risk of having a revision surgery due to this up to 60%. I know it is hard. I know it feels impossible. But there are ways. Take control of your life. We are here to help you through it. And when you are ready, ask us and we can direct you to help if you desire. Use the START Plan to Quit Smoking (please visit the Helpguide.org website l isted below for more information): S = Set a quit date. Choose a date within the next 2 weeks, so you have enough time to prepare without losing your motivation to quit. If you mainly smoke at work, quit on the weekend, so you have a few days to adjust to the change. T = Tell family, friends, and co-workers that you plan to quit. Let your friends and family in on your plan to quit smoking and tell them you need their support and encouragement to stop. Look for a quit harpal who wants to stop smoking as well. You can help each other get through the rough times. A = Anticipate and plan for the challenges you'll face while quitting. Most people who begin smoking again do so within the first 3 months. You can help yourself make it through by preparing ahead for common challenges, such as nicotine withdrawal and cigarette cravings. R = Remove cigarettes and other tobacco products from your home, car, and work. Throw away all your cigarettes (no emergency pack!), lighters, ashtrays, and matches. Wash your clothes and freshen up anything that smells like smoke. Shampoo your car, clean your drapes and carpet, and steam your furniture. T = Talk to your doctor about getting help to quit. Your doctor can prescribe medication to help with withdrawal and suggest other alternatives. If you can't see a doctor, you can get many products over the counter at your local pharmacy or grocery store, including the nicotine patch, nicotine lozenges, and nicotine gum. Resources for Quitting Smoking: <https://www.[place].gov/documents/[facility]/Quit_Tobacco_Resour ces_for_patients_313480_7.pdf> Supplementation: Take recommended dosages of Vitamin D and Calcium to help fortify your bones and help them to heal. See your health maintenance packet for dosages and recommended levels. DVT/VTE prophylaxis: You will be given compression stockings from the hospital. Wear these daily for the first two weeks after surgery. You may take them off at night. You may be prescribed a medication to help thin your blood. Take this as directed. If you are not prescribed this medication, early and frequent ambulation has been shown to be the best prophylaxis to deep vein thrombosis and sequelae related to this event. 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 3.L1-B0oabzatqamvs and stenosis 4. Degenerative lumbar scoliosis 5. BLE weakness L>R 6. Neurogenic claudication Procedures: L1-2, L2-3, L3-L4 BILATERAL LAMINECTOMY, PARTIAL MEDIAL FACETECTOMY AND FORAMINOTOMIES Patient Condition at Discharge: Good Plan - Discharge Summary Discharge Rx Participant: No New Discharge Prescriptions: New Aspirin 81 mg PO DAILY tab Cyclobenzaprine [Flexeril] 5 mg PO BID #14 tablet Ferrous Sulfate [Iron (65 MG Elemental)] 325 mg PO W/LUNCH #30 tab Psyllium Husk 100% [Metamucil Packet] 6 gm PO DAILY #30 packet HYDROcodone/APAP 7.5-325MG [Bergholz 7.5-325] 1 tab PO Q6HR PRN #28 tab PRN Reason: Pain Sennosides/Docusate Sodium [Senna Plus 8.6-50 mg Softgel] 1 each PO DAILY #20 capsule Continue Levothyroxine Sodium [Synthroid] 50 mcg PO QAM Verapamil HCl [Verapamil ER] 180 mg PO BID Acetaminophen [Tylenol Arthritis] 500 - 1,000 mg PO Q6H PRN PRN Reason: Pain No Action Sayra Back And Body Extra Str 1 dose PO DAILY PRN PRN Reason: Pain Discharge Medication List Acetaminophen [Tylenol Arthritis] 500 - 1,000 mg PO Q6H PRN 12/05/24 [History] Sayra Back And Body Extra Str 1 dose PO DAILY PRN 12/05/24 [History] Levothyroxine Sodium [Synthroid] 50 mcg PO QAM 12/05/24 [History] Verapamil HCl [Verapamil ER] 180 mg PO BID 12/05/24 [History] Aspirin 81 mg PO DAILY tab 12/12/24 [Rx] Cyclobenzaprine [Flexeril] 5 mg PO BID #14 tablet 12/12/24 [Rx] Ferrous Sulfate [Iron (65 MG Elemental)] 325 mg PO W/LUNCH #30 tab 12/12/24 [Rx] HYDROcodone/APAP 7.5-325MG [Bergholz 7.5-325] 1 tab PO Q6HR PRN #28 tab 12/12/24 [Rx] Psyllium Husk 100% [Metamucil Packet] 6 gm PO DAILY #30 packet 12/12/24 [Rx] Sennosides/Docusate Sodium [Senna Plus 8.6-50 mg Softgel] 1 each PO DAILY #20 capsule 12/12/24 [Rx] Follow up Appointment(s)/Referral(s): Rosa Welsh MD [Primary Care Provider] - 1 Week [facility] [NON-STAFF] - As Needed Cooper Pimentel DO [Doctor of Osteopathic Medicine] - 12/24/24 2:45 pm [facility] [NON-STAFF] - As Needed (LSO back brace) Activity/Diet/Wound Care/Special Instructions: Spine Discharge and Recovery Instructions Date of Surgery: 12/09/2024 Diagnosis: 1.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 3.L1-Z9usefqunvita and stenosis 4. Degenerative lumbar scoliosis 5. BLE weakness L>R 6. Neurogenic claudication Procedure: L1-2, L2-3, L3-L4 BILATERAL LAMINECTOMY, PARTIAL MEDIAL FACETECTOMY AND FORAMINOTOMIES Medications: See medication list All medication refills should be obtained through your primary care doctor or your clinic spine surgeon. Please discuss prescription refills at your follow up appointment. Do not call the hospital for medication refills. Dressing: Leave your dressing in place for a total of 5 days post operatively. Then you may remove your dressing and leave open to air. Keep the area clean and if not able to keep area clean, then cover with sterile gauze and tape. Showering: You may shower 3 days after your procedure allowing soap and water to run over incision. Do not scrub. Do not soak. Blot dry. Follow up: Please confirm a follow up appointment with your surgeon 3 weeks post operatively. Please make an appointment to follow up with your PCP in 1-2 weeks after surgery for evaluation '3 phase, 3-week plan' POST OP WEEKS 1-3 1. Lifting/carrying/pushing/pulling limited to less than 5 pounds. 2. Do not sit for longer than 15 minutes at one time. Get up and walk around. Prolonged sitting is NOT advised. If you lay down, see if you can tolerate laying down on you front (belly side) 3. Walk for periods of 15 minutes = 1 mile but no longer; do it multiple times times each day. 4. Ice your low back after activity. POST OP WEEKS 3-6 1. Lifting limited to less than 20 pounds. 2. Do not sit for longer than 30 minutes at a time. Frequently change positions. Use a sit-to stand workstation or take frequent breaks from sitting if you have returned to work. 3. Walk for 30 minutes each day. If possible, do these three or more times a day POST OP WEEKS 6+ At your 6-week appointment we will give you a physical therapy referral to focus on a core stabilization and strengthening program. You should also work on leg & buttock strengthening, hamstring & quadriceps stretching, and continue a low impact aerobic activity program such as swimming, walking, or riding a stationary bicycle. During the initial 6 weeks after your surgery, you are at the highest risk of re-injuring your spine. You should generally avoid BLT's (bending, lifting and twisting combination motions) and follow the above guidelines to reduce the chance of reinjury. You can anticipate post op appointments in our office at approximately 3 weeks and 6 weeks after your surgery. INCISION CARE: If your incision is not draining you do NOT need to cover it with a dressing. Keep your incision clean, dry and intact. In most cases, we apply skin glue, efe or sutures to the incision at the time of surgery. This will be like a crust or have the appearance of a scab and will fall off in time on its own. The stitches or efe need to be removed at 3 weeks post op appointment. You may begin to shower 3 days after surgery (this allows the glue to herrera well). However, please avoid scrubbing the incision site or peeling off any of the skin glue. This will ensure optimal healing of your incision. Also, during this time avoid soaking the incision area in water - this includes swimming pools, hot tubs or baths. No ointments, lotions or oils on the incision until your surgeon allows. Leave efe, sutures or glue in place. Neurological dysfunction that comes on suddenly can also be a sign of a stroke. Below some common symptoms of a stroke are listed: B - balance difficulty such as sudden onset walking or leaning to one side - NEW E - eye problem such as sudden double vision or trouble seeing on one side - NEW F - Facial weakness or numbness on one side - NEW A - Arm or leg weakness or numbness on one side - NEW S - Slurred speech or difficulty with word finding - NEW T - Time is BRAIN! Call 911 as soon as you recognize these symptoms Diet: Consume a regular diet rich in vegetables and lean protein such as chicken or fish. You should consume in a ratio of approximately 20% fats|40% carbohydrates|40%protein. Vegetables, sweet potatoes, brown rice or quinoa are examples of good carbohydrates. Chips, white bread, cookies and sweets/sugar are examples of bad carbohydrates. Limit your bad carbs, go wild with good carbs. "Life's Simple 7" Guidelines as per [place] [employer] These will help you reclaim your life after surgery and drywall hanger helper in your recovery, keeping in mind your restrictions. (1) Get Active. Physical activity can help people lose weight, control high blood pressure and cholesterol, feel emotionally better, and sleep better. (2) Control Cholesterol. Avoid a diet high in saturated fat, trans fat, & cholesterol. Limit whole milk & cream, ice cream, butter, egg yolks, processed meats (like sausage and hot dogs), and fatty meats. Choose healthy foods that are low in saturated fat, trans fat and cholesterol which include: Fruits and vegetables, fiber rich grain products (like whole grain pasta and brown rice), lean meat such as chicken, fish, nuts, seeds, and legumes. (3) Eat Better. Eat small portions. Shop at the grocery with a list and do not stray from it. Tips for a healthy diet include: Limit sodium intake to less than 1500mg daily, avoid prepackaged, processed, and fast foods, choose a diet rich in fruits, vegetables, and whole grain, high fiber foods, and limit saturated & cholesterol in your diet. (4) Manage Blood Pressure. If you have high blood pressure, you should have a cuff at home so that you can check your blood pressure regularly. Be sure you have a good cuff. An arm one is generally better than a wrist one. Bring the cuff to a doctor's appointment to validate that the measurements that your cuff are taking are accurate. Take your blood pressure twice daily when you are sitting down and relaxing. Record the numbers in a log and bring this log with you to your doctors' appointments. (5) Lose Weight if your BMI is above 25. A healthy BMI is between 19-25. To calculate Your BMI, you may use a Standard BMI Calculator on the NIH BMI website: <www.nhlbi.nih.gov/guidelines/obesity/BMI/bmicalc.htm>. Weigh oneself daily. If you are overweight, set a goal to lose weight. A pound a week loss if needed is a good target. (6) Reduce Blood Sugar. Limit foods and liquids with "added sugars." (Added sugars include sucrose, fructose, glucose, maltose, dextrose, high fructose corn syrup, corn syrup, concentrated fruit juice and honey). (7) Stop Smoking. If you smoke, quitting smoking is one of the best things that you can do for your health. Smoking increases your risk of heart attack, stroke, and peripheral vascular disease, which is a build-up of plaque in your arteries. Please discard all the cigarettes and lighters in your house. Have a plan for what you will do when you have the urge to smoke. Direct and second- hand smoke shortens your life as well as the lives of your family, friends and others around you. For your health and the health of those around you, please consider quitting! Proper Bending Body Mechanics: Maintain a wide stance with one foot slightly in front of the other. Keep your back straight. Bend utilizing the strength in your hips and knees. Do not bend at the waist. Maintain the lifted object at your waist-level close to your body. Avoid lifting weight that causes immediately pain or pain anywhere in the body afterwards. Smoking/Nicotine If there was ever one thing that you could do to increase your overall health, decrease your risk of cardiovascular problems by about 39% the second you make the choice, it is to STOP SMOKING. Your body's most instant gratification is the second you stop smoking. We have all heard the studies, read the articles but it is true, smoking is extremely bad for your overall health, and moreover it is detrimental to your bone health. Nicotine, IN ANY FORM, kills bone cells, prevents your body from healing fractures, and significantly prolongs healing after surgery. In spine surgery specifically, it increases your risk of not healing your bones to create a fusion and increases your risk of having a revision surgery due to this up to 60%. I know it is hard. I know it feels impossible. But there are ways. Take control of your life. We are here to help you through it. And when you are ready, ask us and we can direct you to help if you desire. Use the START Plan to Quit Smoking (please visit the Helpguide.org website listed below for more information): S = Set a quit date. Choose a date within the next 2 weeks, so you have enough time to prepare without losing your motivation to quit. If you mainly smoke at work, quit on the weekend, so you have a few days to adjust to the change. T = Tell family, friends, and co-workers that you plan to quit. Let your friends and family in on your plan to quit smoking and tell them you need their support and encouragement to stop. Look for a quit harpal who wants to stop smoking as well. You can help each other get through the rough times. A = Anticipate and plan for the challenges you'll face while quitting. Most people who begin smoking again do so within the first 3 months. You can help yourself make it through by preparing ahead for common challenges, such as nicotine withdrawal and cigarette cravings. R = Remove cigarettes and other tobacco products from your home, car, and work. Throw away all your cigarettes (no emergency pack!), lighters, ashtrays, and matches. Wash your clothes and freshen up anything that smells like smoke. Shampoo your car, clean your drapes and carpet, and steam your furniture. T = Talk to your doctor about getting help to quit. Your doctor can prescribe medication to help with withdrawal and suggest other alternatives. If you can't see a doctor, you can get many products over the counter at your local pharmacy or grocery store, including the nicotine patch, nicotine lozenges, and nicotine gum. Resources for Quitting Smoking: <https://www.[place].gov/documents/[facility]/Quit_Tobacco_Resources_for_patients_313 480_7.pdf> Supplementation: Take recommended dosages of Vitamin D and Calcium to help fortify your bones and help them to heal. See your health maintenance packet for dosages and recommended levels. DVT/VTE prophylaxis: You will be given compression stockings from the hospital. Wear these daily for the first two weeks after surgery. You may take them off at night. You may be prescribed a medication to help thin your blood. Take this as directed. If you are not prescribed this medication, early and frequent ambulation has been shown to be the best prophylaxis to deep vein thrombosis and sequelae related to this event. Discharge Disposition: HOME SELF-CARE
--- NOTE | 2024-12-12 11:41 | P.PN ---
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 3.L1-X7chwzsvplras and stenosis 4. Degenerative lumbar scoliosis 5. BLE weakness L>R 6. Neurogenic claudication Patient was seen at bedside this morning lying the semirecumbent position with dressing present over lumbar spine. Patient says she has been improving gradually every day. Patient says she has gotten up with therapy and walked around the room a little bit. Patient says she does have at home who will be able to help her out. She says she has been urinating okay since surgery. Patient says pain has been controlled with oral medication. Patient denies any other issues at this time. Objective - Vital Signs Vital signs: Vital Signs Temp 97.8 F 12/12/24 08:00 Pulse 67 12/12/24 08:00 Resp 18 12/12/24 08:00 BP 106/63 12/12/24 08:00 Pulse Ox 91 L 12/12/24 08:00 FiO2 Intake & Output 12/11/24 12/12/24 12/12/24 18:59 06:59 18:59 Intake Total 650 Balance 650 Intake: Intake, IV Titration 100 Amount Sodium Ferric Gluconat- 100 Sucrose 125 mg In Sodium Chloride 0.9% 100 ml @ 100 mls/hr IVPB DAILY [facility] [place] Rx#:[id number] Oral 550 Other: Voiding Method Bedside Commode Bedside Commode Bedside Commode Diaper Diaper Diaper # Voids 3 1 - Exam Some swelling present over dressing on spine. Dressing taken down. [place] appear to be well aligned and intact. Negative for any drainage. New dressing placed over spine incision. Sensation is equal, symmetric, by intact throughout the upper and lower extremities on exam. There is some generalized tenderness to palpation near incision on exam. Nontender throughout rest of exam. Patient does have good range of motion throughout extremities on exam. 4+/5 in all major motor groups in bilateral upper and lower extremities. Radial pulse intact, 2+ bilaterally. Cap refill under 3 seconds in digits of upper extremities. Negative Homans bilaterally. Negative clonus bilaterally. Negative Elder bilaterally. 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 3.L1-J9lvfukydllrn and stenosis 4. Degenerative lumbar scoliosis 5. BLE weakness L>R 6. Neurogenic claudication -Postop day #3 status post L1-2, L2-3, L3-L4 BILATERAL LAMINECTOMY, PARTIAL MEDIAL FACETECTOMY AND FORAMINOTOMIES Plan: 1. L3-4 severe stenosiswith spondylosis; L4-5 severe stenosis with Grade I spondylolisthesis, unstable; L1-B2iipuaxibskj and stenosis; Degenerative lumbar scoliosis; BLE weakness L>R; Neurogenic claudication -surgery performed 12/09/2024L1-2, L2-3, L3-L4 BILATERAL LAMINECTOMY, PARTIAL MEDIAL FACETECTOMY AND FORAMINOTOMIES. Patient's pain has been improving over the past couple days. Dressing clean, dry, intact. [place] well aligned and intact. Weightbearing as tolerated with walker and assistance as needed. Pain medication as needed. Discharge home today with home care. 2. Appreciate medical management 3. Pain management -[place]; Flexeril; tramadol 4. GI prophylaxis -senna 5. DVT prophylaxis -aspirin 6. PT/OT -weightbearing as tolerated with walker and assistance 7. Encourage incentive spirometer use 8. Discharge planning -discharge home today with home care Time with Patient: Less than 30
--- NOTE | 2024-12-12 17:35 | P.PN ---
Progress Note - Text Progress Note Date: 12/12/24 - Chief Complaint Lumbar surgery - History of Present Illness I am rounding for Dr. Andre Baxter who called me this evening not feeling well. 84-year-old patient, follows with Dr Welsh. Chronic stable medical condition include hypertension, osteoarthritis, hypothyroid. History of COVID. Patient underwent lumbar surgery with symptoms at the same area including causing neurogenic claudication and lower extremity weakness left greater than right. Rather sleepy postoperative. December 10: Did tolerate a meal. Some pain present at operative site. Using a walker. Made urine. No bowel movement. Discussed with at the bedside. December 11: Eating fair. Has a brace. No bowel movement. Taking laxative. Discussed with patient . December 12: Doing well. Pain better controlled. Ambulating with a walker. No bowel movement. She will take care of her laxative she says. Questions answered. Otherwise doing well. Social history: Non-smoking. No alcohol. Physical examination: VITAL SIGNS: 97.8, 67, 18, 106 x 73, 91% room air GENERAL: At the edge of the bed, comfortable EYES: Pupils equal. Conjunctiva julia l. HEENT: External appearance of nose and ears normal, oral cavity grossly normal. NECK: JVD not raised; masses not palpable. HEART: First and second heart sounds are normal; no edema. LUNGS: Respiratory rate normal; clear to auscultation. ABDOMEN: Soft, nontender, liver spleen not palpable, no masses palpable. PSYCH: AA O x 3, mood affect normal MUSCULOSKELETAL:No Clubbing/cyanosis;muscles-grossly intact. OA. Dressing over the lumbar site. INVESTIGATIONS, reviewed in the clinical context: December 12: White count 8.5 hemoglobin 11.3 platelets 323 December 10: White count 13.9 hemoglobin 10.7 platelets 332 potassium 4.5 creatinine 0.7 Assessment plan: -L3-L4 severe stenosis with spondylosis, spondylolisthesis, bilateral lower extremity weakness left greater than right, neurogenic claudication. Followed by bilateral laminectomy facetectomy and foraminotomies. Pain medications per Ortho. Activity as tolerated. Received IV cefazolin for infection prophylaxis and IV Decadron. -Essential hypertension Verapamil ER 180 mg twice daily -Acute postprocedure blood loss anemia expected from surgery IV Ferrlecit. Oral iron. -Leukocytosis likely reactive surgery. No clinical evidence of infection -Hypothyroid Synthroid 50 mcg a day -Primary osteoarthritis Pain medication as needed Discussed with patient . Stable. Follow-up with PCP next week. Thank you Dr. Pimentel Past Medical History Past Medical History: Cancer, Hypertension, Osteoarthritis (OA), Thyroid Disorder Additional Past Medical History / Comment(s): tested positive for Covid 12-19--tx w/ paxlovid,chronic back pain, hx fx rt leg just below knee History of Any Multi-Drug Resistant Organisms: None Reported Past Surgical History: Cholecystectomy, Joint Replacement Additional Past Surgical History / Comment(s): Vulva CA-4 surgical procedures,ORIF rt hip, rt hip replacement, rt knee replacement,partial thyroidectomy Past Anesthesia/Blood Transfusion Reactions: No Reported Reaction, Postoperative Nausea & Vomiting (PONV) Additional Past Anesthesia/Blood Transfusion Reaction / Comm: no hx blood transfusion. PONV w/ gallbladder surgery Past Psychological History: No Psychological Hx Reported Smoking Status: Never smoker Past Alcohol Use History: None Reported Past Drug Use History: None Reported
== END 2024-12-12 13:31 | disposition home or self-care (01) ==
LOC: OR 05:40 → 4SSUR 14:56 → OR 12-11 13:53 → 4SSUR 12-11 13:53
PROVIDERS: ADMIT Orthopaedic Surgery; ATTEND Orthopaedic Surgery
DX: M48.062 Spinal stenosis, lumbar region with neurogenic claudication (principal); M43.16 Spondylolisthesis, lumbar region; M41.56 Other secondary scoliosis, lumbar region; I10 Essential (primary) hypertension; E03.9 Hypothyroidism, unspecified; M19.91 Primary osteoarthritis, unspecified site; G89.29 Other chronic pain; Z86.16 Personal history of COVID-19; Z85.44 Personal history of malignant neoplasm of other female genital organs; Z96.651 Presence of right artificial knee joint; Z96.641 Presence of right artificial hip joint; Z88.0 Allergy status to penicillin; Z88.2 Allergy status to sulfonamides; Z79.890 Hormone replacement therapy; Z79.899 Other long term (current) drug therapy; Z79.82 Long term (current) use of aspirin
CPT/HCPCS: 63047; 63048; 97116 ×2; 97161; 97530; 97166; 80048; 85025 ×2; 72100; G0378 ×2; C1762; J2250; J3370; J0330; J1100; J2710; J0690 ×2; J2405; J2003; J3010; J2916 ×2; J1171 ×3; P9045; J2704; J2371; J0665; J1596